=== PATIENT | female | born 1990 | race Asian ===

== ENCOUNTER → 2022-03-19 | Day surgery (SDC) | payer OTHER | END | disposition home or self-care (01) | LOC: JRADUS-SUR 12:04 | PROVIDERS: ATTEND Obstetrics & Gynecology | PROC: 0H9U3ZX Drainage of Left Breast, Percutaneous Approach, Diagnostic (ICD-10-PCS; principal; 2022-03-19) | DX: N60.22 Fibroadenosis of left breast (principal) | CPT/HCPCS: 19083; 87899; 88305-TC; 88342-TC; A4648 ==